=== PATIENT | male | born 1945 | race African-American/Black ===

== ENCOUNTER 2019-09-04 00:35 | Inpatient (IN) | payer MEDICARE, MEDICAID ==
[~2019-09-04] VITALS: Ht 180.3 cm; Wt 77.1 kg
[2019-09-04] MEDS ORDERED: SODIUM CHLORIDE 0.9% 1,000 ML IV ONE (02:28)
[2019-09-04] MEDS ORDERED: MORPHINE SULFATE 4 MG/ML CPJ (NOT FOR IM USE) IV STA (02:28)
[2019-09-04] MEDS ORDERED: ONDANSETRON HCL 4MG/2ML INJ IV STA (02:28)
[2019-09-04 03:29] LABS: CHLORIDE 110 mEq/L (98-107)
[2019-09-04 03:35] LABS: HEMATOCRIT. 36.8 % (42.0-52.0); HEMOGLOBIN. 12.4 g/dL (14.0-18.0); MEAN CORPUSCULAR VOLUME 89.1 fL (80.0-94.0); PLATELET 212 x1000/uL (130-400); RED BLOOD CELL COUNT 4.13 mill/uL (4.7-6.1); RED CELL DISTRIBUTION WIDTH 13.9 % (11.6-14.6)
[2019-09-04 05:07] LABS: PLATELET ESTIMATE NORMAL
[2019-09-04] MEDS ORDERED: CLONIDINE 0.1MG TABLET PO PRN (05:45)
[2019-09-04] MEDS ORDERED: ACETAMINOPHEN 325MG TABLET PO PRN (05:45)
[2019-09-04] MEDS ORDERED: DOCUSATE SODIUM 100MG CAPSULE PO PRN (05:45)
[2019-09-04] MEDS ORDERED: ONDANSETRON HCL 4MG/2ML INJ IV PRN (05:45)
[2019-09-04] MEDS ORDERED: SODIUM BICARBONATE 8.4% 1 MEQ/ML 50ML SYR IV ONE ×4 (06:00)
[2019-09-04 07:13] LABS: CLARITY URINE CLEAR (CLEAR); COLOR URINE YELLOW (YELLOW); KETONES URINE TRACE (NEGATIVE); LEUKOCYTE ESTERASE URINE 1+ (NEGATIVE); NITRITE URINE NEGATIVE (NEGATIVE); OCCULT BLOOD URINE 1+ (NEGATIVE); PROTEIN URINE NEGATIVE (NEGATIVE); SPECIFIC GRAVITY URINE 1.024 (1.005-1.030)
[2019-09-04] MEDS ORDERED: AMLODIPINE 5MG TABLET PO SCH (09:00)
[2019-09-04 09:40] VITALS: BP 175/88
[2019-09-04 10:02] VITALS: BP 146/74
[2019-09-04] MEDS: MORPHINE SULFATE 2 MG/ML CPJ (NOT FOR IM USE) IV PRN ×2 (10:13→21:42)
[2019-09-04 12:00] VITALS: BP 121/67
[2019-09-04] MEDS: DEXT 5%/0.45% NACL 1000ML 1,000 ML IV SCH (12:25)
[2019-09-04 16:00] VITALS: BP 162/73
[2019-09-04 20:00] VITALS: BP 152/60
[2019-09-04] MEDS: AMLODIPINE 5MG TABLET PO SCH (21:30)
[2019-09-05 04:00] VITALS: BP 150/67
[2019-09-05] MEDS: DEXT 5%/0.45% NACL 1000ML 1,000 ML IV SCH ×2 (05:57→10:47)
[2019-09-05 06:28] LABS: CHLORIDE 109 mEq/L (98-107)
[2019-09-05 06:29] LABS: BASOPHILS % 0.2 % (0.0-2.0); EOSINOPHILS % 0.2 % (0.0-5.0); LYMPHOCYTES % 10.2 % (20.0-50.0); MEAN CORPUSCULAR HEMOGLOBIN 30.4 pg (28.0-32.0); MONOCYTES % 7.7 % (2.0-8.0); NEUTROPHILS % 81.7 % (40.0-76.0); PLATELET 172 x1000/uL (130-400); RED BLOOD CELL COUNT 3.93 mill/uL (4.7-6.1); RED CELL DISTRIBUTION WIDTH 13.6 % (11.6-14.6)
[2019-09-05 06:36] LABS: HDL CHOLESTEROL 72 mg/dL (40-59)
[2019-09-05 06:38] LABS: LDL CHOLESTEROL 85 mg/dL (5-100)
[2019-09-05 08:00] VITALS: BP 103/79
[2019-09-05] MEDS: AMLODIPINE 5MG TABLET PO SCH ×2 (09:06→21:35)
[2019-09-05] MEDS: MORPHINE SULFATE 2 MG/ML CPJ (NOT FOR IM USE) IV PRN (09:12)
[2019-09-05 12:00] VITALS: BP 159/78
[2019-09-05 16:00] VITALS: BP_SYST 142; BP_SYST 157; BP_DIAS 82; BP_DIAS 85
[2019-09-05] MEDS ORDERED: VANCOMYCIN HCL 1 GM/VIAL ONE (17:18)
[2019-09-05] MEDS ORDERED: BUPIVACAINE HCL/EPINEPHRINE/PF 0.5%/0.0005 10ML ONE (17:18)
[2019-09-05] MEDS ORDERED: BACITRACIN 50,000 UNITS/VIAL ONE (17:19)
[2019-09-05] MEDS ORDERED: MIDAZOLAM HCL 2 MG/2 ML VIAL ONE (18:02)
[2019-09-05] MEDS ORDERED: FENTANYL CITRATE/PF 50MCG/ML 2ML VIAL ONE (18:02)
[2019-09-05] MEDS ORDERED: PROPOFOL 200MG/20ML VIAL IV ONE (18:02)
[2019-09-05] MEDS ORDERED: LABETALOL 5MG/ML SYR 20 MG/4 ML SYRINGE IV PRN (19:00)
[2019-09-05] MEDS ORDERED: MEPERIDINE HCL/PF 25MG/ML CPJ IV PRN (19:00)
[2019-09-05] MEDS ORDERED: HYDROMORPHONE HCL/PF 2MG/ML CPJ IV PRN (19:00)
[2019-09-05] MEDS ORDERED: ONDANSETRON HCL 4MG/2ML INJ IV PRN (19:00)
[2019-09-05] MEDS ORDERED: ONDANSETRON HCL 4MG/2ML INJ ONE (19:06)
[2019-09-05] MEDS ORDERED: DEXAMETHASONE 4MG/ML 1ML VIAL ONE (19:06)
[2019-09-05] MEDS ORDERED: CEFAZOLIN SODIUM 1000MG/VIAL ONE (19:06)
[2019-09-05] MEDS ORDERED: SODIUM CHLORIDE 0.9% 10ML VIAL ONE (19:07)
[2019-09-05 20:15] VITALS: BP 149/73
[2019-09-05] MEDS ORDERED: CEFAZOLIN SODIUM 1000MG/VIAL IV SCH (22:00)
[2019-09-05] MEDS ORDERED: CEFAZOLIN 1000MG PREMIX 50 ML IV SCH (23:00)
[2019-09-06] VITALS: BP 144/77
[2019-09-06] MEDS: DEXT 5%/0.45% NACL 1000ML 1,000 ML IV SCH
[2019-09-06] MEDS: HYDROCODONE/ACETAMINOPHEN 5/325MG TABLET PO PRN ×3 (00:05→16:51)
[2019-09-06 04:00] VITALS: BP 131/73
[2019-09-06] MEDS: CEFAZOLIN 1000MG PREMIX 50 ML IV SCH ×3 (04:54→16:36)
[2019-09-06 08:00] VITALS: BP 133/77
[2019-09-06] MEDS: AMLODIPINE 5MG TABLET PO SCH ×2 (08:32→22:12)
[2019-09-06] MEDS: DOCUSATE SODIUM 100MG CAPSULE PO SCH (10:19)
[2019-09-06] MEDS: ENOXAPARIN 40MG/0.4ML SYR SUBCUT SCH (10:19)
[2019-09-06] MEDS: MORPHINE SULFATE 2 MG/ML CPJ (NOT FOR IM USE) IV PRN (10:19)
[2019-09-06 12:00] VITALS: BP 152/81
[2019-09-06 16:00] VITALS: BP 153/76
[2019-09-06 20:00] VITALS: BP 133/67
[2019-09-07] VITALS (8 sets, daily range): BP systolic 129–140; BP diastolic 68–84
[2019-09-07 06:54] LABS: CHLORIDE 103 mEq/L (98-107)
[2019-09-07 07:03] LABS: BASOPHILS % 0.3 % (0.0-2.0); EOSINOPHILS % 0.2 % (0.0-5.0); HEMATOCRIT. 29.6 % (42.0-52.0); HEMOGLOBIN. 10.2 g/dL (14.0-18.0); LYMPHOCYTES % 10.1 % (20.0-50.0); MEAN CORPUSCULAR HEMOGLOBIN 30.7 pg (28.0-32.0); MEAN CORPUSCULAR VOLUME 88.8 fL (80.0-94.0); MONOCYTES % 8.6 % (2.0-8.0); NEUTROPHILS % 80.8 % (40.0-76.0); PLATELET 176 x1000/uL (130-400); RED BLOOD CELL COUNT 3.33 mill/uL (4.7-6.1); RED CELL DISTRIBUTION WIDTH 13.4 % (11.6-14.6)
[2019-09-07] MEDS: AMLODIPINE 5MG TABLET PO SCH ×2 (08:15→20:45)
[2019-09-07] MEDS: DOCUSATE SODIUM 100MG CAPSULE PO SCH (08:15)
[2019-09-07] MEDS: ENOXAPARIN 40MG/0.4ML SYR SUBCUT SCH (08:16)
[2019-09-07] MEDS: HYDROCODONE/ACETAMINOPHEN 5/325MG TABLET PO PRN ×2 (08:16→20:44)
[2019-09-07] MEDS ORDERED: NICOTINE 21MG PATCH TD SCH (14:45)
[2019-09-08] MEDS ORDERED: MULT1CAP34 PO (06:26)
== END 2019-09-07 21:00 | DRG 482 ==
LOC: ER 01:07 → 6EST 05:45 → EDBEDREQ 05:51 → EDBEDREQSVC 05:51 → EDBEDREQTM 05:51 → ENRESERV 09:04
PROVIDERS: ADMIT Internal Medicine Nephrology; ATTEND Internal Medicine Nephrology
PROC: 0QS704Z Reposition Left Upper Femur with Internal Fixation Device, Open Approach (ICD-10-PCS; principal; 2019-09-05)
DX: S72.142A Displaced intertrochanteric fracture of left femur, initial encounter for closed fracture (principal); I16.0 Hypertensive urgency; J44.9 Chronic obstructive pulmonary disease, unspecified; I10 Essential (primary) hypertension; F17.210 Nicotine dependence, cigarettes, uncomplicated; W01.0XXA Fall on same level from slipping, tripping and stumbling without subsequent striking against object, initial encounter; Y93.89 Activity, other specified; Y92.89 Other specified places as the place of occurrence of the external cause; Y99.8 Other external cause status
CPT/HCPCS: 36415; 71045; 73501; 73502; 73552; 76000; 80048; 80053; 80061; 81003; 84484; 85025; 86850; 86900; 93005; 93306; 93970; 97110; 97163; 97530; 99285; C1713; J0171; J0690; J1100; J1170; J1650; J2250; J2270; J2405; J2704; J3010; J3370; J3490; J7030

== ENCOUNTER 2019-09-07 21:05 | Inpatient (IN) | payer MEDICARE, MEDICAID ==
[~2019-09-07] VITALS: Ht 180.3 cm; Wt 81.2 kg
[2019-09-07 21:20] VITALS: BP 135/70
[2019-09-07 22:00] VITALS: BP 135/70
[2019-09-07] MEDS ORDERED: DOCUSATE SODIUM 100MG CAPSULE PO PRN (22:15)
[2019-09-07] MEDS ORDERED: ACETAMINOPHEN 325MG TABLET PO PRN (22:15)
[2019-09-07] MEDS ORDERED: CLONIDINE 0.1MG TABLET PO PRN (22:15)
[2019-09-07] MEDS ORDERED: ONDANSETRON HCL 4MG/2ML INJ IV PRN (22:15)
[2019-09-08] MEDS: HYDROCODONE/ACETAMINOPHEN 5/325MG TABLET PO PRN ×4 (05:37→18:10)
[2019-09-08] MEDS ORDERED: MULT1CAP34 PO (06:26)
[2019-09-08 07:07] LABS: BASOPHILS % 0.3 % (0.0-2.0); EOSINOPHILS % 0.4 % (0.0-5.0); HEMATOCRIT. 30.3 % (42.0-52.0); HEMOGLOBIN. 10.5 g/dL (14.0-18.0); LYMPHOCYTES % 10.1 % (20.0-50.0); MEAN CORPUSCULAR HEMOGLOBIN 30.8 pg (28.0-32.0); MEAN CORPUSCULAR VOLUME 89.2 fL (80.0-94.0); MEAN PLATELET VOLUME 8.8 fl (7.4-10.4); MONOCYTES % 7.6 % (2.0-8.0); NEUTROPHILS % 81.6 % (40.0-76.0); PLATELET 198 x1000/uL (130-400); RED BLOOD CELL COUNT 3.39 mill/uL (4.7-6.1); RED CELL DISTRIBUTION WIDTH 13.3 % (11.6-14.6)
[2019-09-08 07:20] LABS: CHLORIDE 104 mEq/L (98-107)
[2019-09-08 08:30] VITALS: BP 116/67
[2019-09-08] MEDS: DOCUSATE SODIUM 100MG CAPSULE PO SCH (09:28)
[2019-09-08] MEDS: AMLODIPINE 5MG TABLET PO SCH ×2 (09:28→20:31)
[2019-09-08] MEDS: ENOXAPARIN 40MG/0.4ML SYR SUBCUT SCH (09:29)
[2019-09-08] MEDS: NICOTINE 21MG PATCH TD SCH (09:29)
[2019-09-08 20:00] VITALS: BP 141/75
[2019-09-08] MEDS: LACTULOSE 20G/30ML UDC PO PRN (20:31)
[2019-09-09] MEDS: HYDROCODONE/ACETAMINOPHEN 5/325MG TABLET PO PRN ×3 (00:04→17:27)
[2019-09-09 08:30] VITALS: BP 122/62
[2019-09-09] MEDS: DOCUSATE SODIUM 100MG CAPSULE PO SCH ×2 (09:01→17:27)
[2019-09-09] MEDS: AMLODIPINE 5MG TABLET PO SCH ×2 (09:01→20:40)
[2019-09-09] MEDS: ENOXAPARIN 40MG/0.4ML SYR SUBCUT SCH (09:02)
[2019-09-09] MEDS: NICOTINE 21MG PATCH TD SCH (09:02)
[2019-09-09 20:00] VITALS: BP 137/77
[2019-09-09] MEDS: LACTULOSE 20G/30ML UDC PO PRN (20:39)
[2019-09-10] MEDS: HYDROCODONE/ACETAMINOPHEN 5/325MG TABLET PO PRN ×2 (06:00→13:46)
[2019-09-10 07:16] LABS: CHLORIDE 105 mEq/L (98-107)
[2019-09-10 07:25] LABS: PHOSPHORUS 2.5 mg/dL (2.5-4.9)
[2019-09-10 07:26] LABS: TOTAL IRON BINDING CAPACITY 301 ug/dL (250-450)
[2019-09-10 07:31] LABS: BASOPHILS % 0.4 % (0.0-2.0); EOSINOPHILS % 1.4 % (0.0-5.0); HEMATOCRIT. 27.9 % (42.0-52.0); HEMOGLOBIN. 9.6 g/dL (14.0-18.0); LYMPHOCYTES % 13.6 % (20.0-50.0); MEAN CORPUSCULAR HEMOGLOBIN 30.5 pg (28.0-32.0); MEAN CORPUSCULAR VOLUME 88.3 fL (80.0-94.0); MEAN PLATELET VOLUME 8.4 fl (7.4-10.4); MONOCYTES % 7.5 % (2.0-8.0); NEUTROPHILS % 77.1 % (40.0-76.0); PLATELET 252 x1000/uL (130-400); RED BLOOD CELL COUNT 3.16 mill/uL (4.7-6.1); RED CELL DISTRIBUTION WIDTH 13.3 % (11.6-14.6)
[2019-09-10 07:36] LABS: FOLIC ACID (FOLATE) SERUM 17.8 ng/mL (>5.38)
[2019-09-10 07:39] LABS: PROSTRATE SPECIFIC AG TOTAL 64.62 ng/mL (0.0-4.0)
[2019-09-10 08:00] VITALS: BP 155/77
[2019-09-10] MEDS: AMLODIPINE 5MG TABLET PO SCH ×2 (08:37→21:25)
[2019-09-10] MEDS: NICOTINE 21MG PATCH TD SCH (08:38)
[2019-09-10] MEDS: ENOXAPARIN 40MG/0.4ML SYR SUBCUT SCH (08:38)
[2019-09-10] MEDS: POLYETHYLENE GLYCOL 3350 (17GM) 1 DOSE PACK PO SCH (11:32)
[2019-09-10] MEDS: DOCUSATE SODIUM 100MG CAPSULE PO SCH ×2 (11:32→18:18)
[2019-09-10] MEDS: TAMSULOSIN HCL 0.4MG SR CAPSULE PO SCH (11:35)
[2019-09-10 13:30] VITALS: BP 126/61
[2019-09-10 20:00] VITALS: BP 136/64
[2019-09-10] MEDS: CARVEDILOL 3.125 MG TABLET PO SCH (21:25)
[2019-09-11] MEDS: HYDROCODONE/ACETAMINOPHEN 5/325MG TABLET PO PRN ×2 (07:31→14:26)
[2019-09-11 08:08] VITALS: BP 122/66
[2019-09-11] MEDS: POLYETHYLENE GLYCOL 3350 (17GM) 1 DOSE PACK PO SCH (08:46)
[2019-09-11] MEDS: NICOTINE 21MG PATCH TD SCH (08:46)
[2019-09-11] MEDS: DOCUSATE SODIUM 100MG CAPSULE PO SCH ×2 (08:46→17:04)
[2019-09-11] MEDS: ENOXAPARIN 40MG/0.4ML SYR SUBCUT SCH (08:47)
[2019-09-11] MEDS: TAMSULOSIN HCL 0.4MG SR CAPSULE PO SCH (08:47)
[2019-09-11] MEDS: CARVEDILOL 3.125 MG TABLET PO SCH ×2 (08:47→21:27)
[2019-09-11] MEDS: AMLODIPINE 5MG TABLET PO SCH ×2 (08:47→21:27)
[2019-09-11] MEDS ORDERED: NA PHOS,M-B/NA PHOS,DI-BA ENEMA 118ML PR NR (16:00)
[2019-09-11] MEDS ORDERED: BISACODYL 10MG SUPP PR SCH (16:00)
[2019-09-11] MEDS: LACTULOSE 20G/30ML UDC PO SCH ×2 (17:04→21:27)
[2019-09-11 20:00] VITALS: BP 134/63
[2019-09-11] MEDS: IRON SUCROSE COMPLEX 100 MG in SODIUM CHLORIDE 0.9% 100 ML IV SCH (21:23)
[2019-09-12] MEDS: HYDROCODONE/ACETAMINOPHEN 5/325MG TABLET PO PRN (06:31)
[2019-09-12 08:00] VITALS: BP 127/76
[2019-09-12] MEDS: MORPHINE SULFATE 2 MG/ML CPJ (NOT FOR IM USE) IV PRN ×2 (08:30→12:51)
[2019-09-12] MEDS: TAMSULOSIN HCL 0.4MG SR CAPSULE PO SCH (08:43)
[2019-09-12] MEDS: POLYETHYLENE GLYCOL 3350 (17GM) 1 DOSE PACK PO SCH (08:43)
[2019-09-12] MEDS: NICOTINE 21MG PATCH TD SCH (08:43)
[2019-09-12] MEDS: DOCUSATE SODIUM 100MG CAPSULE PO SCH ×2 (08:43→16:44)
[2019-09-12] MEDS: AMLODIPINE 5MG TABLET PO SCH ×2 (08:44→20:58)
[2019-09-12] MEDS: ENOXAPARIN 40MG/0.4ML SYR SUBCUT SCH (08:44)
[2019-09-12] MEDS: CARVEDILOL 3.125 MG TABLET PO SCH ×2 (08:44→20:58)
[2019-09-12] MEDS: LACTULOSE 20G/30ML UDC PO SCH (08:44)
[2019-09-12] MEDS ORDERED: NA PHOS,M-B/NA PHOS,DI-BA ENEMA 118ML PR NR (08:45)
[2019-09-12] MEDS ORDERED: NA PHOS,M-B/NA PHOS,DI-BA ENEMA 118ML PR PRN (09:00)
[2019-09-12] MEDS: OXYCODONE HCL/ACETAMINOPHEN 5/325MG TABLET PO PRN (12:58)
[2019-09-12] MEDS ORDERED: SORBITOL 70% SOLN 30ML PO NR (15:15)
[2019-09-12 20:00] VITALS: BP 132/81
[2019-09-12] MEDS: IRON SUCROSE COMPLEX 100 MG in SODIUM CHLORIDE 0.9% 100 ML IV SCH (20:58)
[2019-09-13] MEDS: OXYCODONE HCL/ACETAMINOPHEN 5/325MG TABLET PO PRN ×2 (06:29→12:35)
[2019-09-13 08:00] VITALS: BP 165/77
[2019-09-13] MEDS: NICOTINE 21MG PATCH TD SCH (09:23)
[2019-09-13] MEDS: TAMSULOSIN HCL 0.4MG SR CAPSULE PO SCH (09:24)
[2019-09-13] MEDS: CARVEDILOL 3.125 MG TABLET PO SCH ×2 (09:24→21:23)
[2019-09-13] MEDS: POLYETHYLENE GLYCOL 3350 (17GM) 1 DOSE PACK PO SCH (09:24)
[2019-09-13] MEDS: ENOXAPARIN 40MG/0.4ML SYR SUBCUT SCH (09:24)
[2019-09-13] MEDS: DOCUSATE SODIUM 100MG CAPSULE PO SCH ×2 (09:24→16:40)
[2019-09-13] MEDS: AMLODIPINE 5MG TABLET PO SCH ×2 (09:24→21:23)
[2019-09-13 15:09] LABS: 25-HYDROXY VITAMIN D3 27 ng/mL (.)
[2019-09-13 20:00] VITALS: BP 120/70
[2019-09-13] MEDS: IRON SUCROSE COMPLEX 100 MG in SODIUM CHLORIDE 0.9% 100 ML IV SCH (21:24)
[2019-09-14] MEDS: OXYCODONE HCL/ACETAMINOPHEN 5/325MG TABLET PO PRN ×2 (06:24→13:31)
[2019-09-14 07:28] LABS: BASOPHILS % 0.4 % (0.0-2.0); HEMATOCRIT. 29.7 % (42.0-52.0); HEMOGLOBIN. 10.2 g/dL (14.0-18.0); LYMPHOCYTES % 12.8 % (20.0-50.0); MEAN CORPUSCULAR HEMOGLOBIN 30.9 pg (28.0-32.0); MEAN CORPUSCULAR VOLUME 89.6 fL (80.0-94.0); MEAN PLATELET VOLUME 7.7 fl (7.4-10.4); MONOCYTES % 7.5 % (2.0-8.0); NEUTROPHILS % 78.3 % (40.0-76.0); PLATELET 358 x1000/uL (130-400); RED BLOOD CELL COUNT 3.31 mill/uL (4.7-6.1); RED CELL DISTRIBUTION WIDTH 13.5 % (11.6-14.6)
[2019-09-14 07:34] LABS: CHLORIDE 107 mEq/L (98-107)
[2019-09-14 08:25] VITALS: BP 111/67
[2019-09-14] MEDS: NICOTINE 21MG PATCH TD SCH (08:51)
[2019-09-14] MEDS: DOCUSATE SODIUM 100MG CAPSULE PO SCH ×2 (08:51→17:45)
[2019-09-14] MEDS: ENOXAPARIN 40MG/0.4ML SYR SUBCUT SCH (08:51)
[2019-09-14] MEDS: AMLODIPINE 5MG TABLET PO SCH ×2 (08:52→22:17)
[2019-09-14] MEDS: TAMSULOSIN HCL 0.4MG SR CAPSULE PO SCH (08:52)
[2019-09-14] MEDS: CARVEDILOL 3.125 MG TABLET PO SCH ×2 (08:53→22:17)
[2019-09-14] MEDS: POLYETHYLENE GLYCOL 3350 (17GM) 1 DOSE PACK PO SCH (08:53)
[2019-09-14] MEDS: ERGOCALCIFEROL 50000UNITS CAPSULE PO SCH (17:46)
[2019-09-14 20:00] VITALS: BP 131/66
[2019-09-14] MEDS: IRON SUCROSE COMPLEX 100 MG in SODIUM CHLORIDE 0.9% 100 ML IV SCH (22:17)
[2019-09-15 08:01] VITALS: BP 112/62
[2019-09-15] MEDS: NICOTINE 21MG PATCH TD SCH (08:42)
[2019-09-15] MEDS: POLYETHYLENE GLYCOL 3350 (17GM) 1 DOSE PACK PO SCH (08:42)
[2019-09-15] MEDS: DOCUSATE SODIUM 100MG CAPSULE PO SCH ×2 (08:43→17:33)
[2019-09-15] MEDS: AMLODIPINE 5MG TABLET PO SCH ×2 (08:43→21:27)
[2019-09-15] MEDS: ENOXAPARIN 40MG/0.4ML SYR SUBCUT SCH (08:43)
[2019-09-15] MEDS: TAMSULOSIN HCL 0.4MG SR CAPSULE PO SCH (08:43)
[2019-09-15] MEDS: CARVEDILOL 3.125 MG TABLET PO SCH ×2 (08:43→21:27)
[2019-09-15] MEDS: OXYCODONE HCL/ACETAMINOPHEN 5/325MG TABLET PO PRN (14:06)
[2019-09-15 20:00] VITALS: BP 118/61
[2019-09-15] MEDS: IRON SUCROSE COMPLEX 100 MG in SODIUM CHLORIDE 0.9% 100 ML IV SCH (21:27)
[2019-09-16 08:00] VITALS: BP 131/68
[2019-09-16] MEDS: CARVEDILOL 3.125 MG TABLET PO SCH ×2 (09:14→22:18)
[2019-09-16] MEDS: DOCUSATE SODIUM 100MG CAPSULE PO SCH ×2 (09:14→16:22)
[2019-09-16] MEDS: AMLODIPINE 5MG TABLET PO SCH ×2 (09:14→21:00)
[2019-09-16] MEDS: TAMSULOSIN HCL 0.4MG SR CAPSULE PO SCH (09:14)
[2019-09-16] MEDS: NICOTINE 21MG PATCH TD SCH (09:14)
[2019-09-16] MEDS: POLYETHYLENE GLYCOL 3350 (17GM) 1 DOSE PACK PO SCH (09:14)
[2019-09-16] MEDS: ENOXAPARIN 40MG/0.4ML SYR SUBCUT SCH (09:15)
[2019-09-16] MEDS ORDERED: LACTULOSE 20G/30ML UDC PO PRN (13:00)
[2019-09-16 20:00] VITALS: BP 126/70
[2019-09-17 07:40] VITALS: BP 125/68
[2019-09-17] MEDS: OXYCODONE HCL/ACETAMINOPHEN 5/325MG TABLET PO PRN ×2 (07:46→21:13)
[2019-09-17 08:09] LABS: BASOPHILS % 0.4 % (0.0-2.0); EOSINOPHILS % 1.3 % (0.0-5.0); HEMATOCRIT. 30.1 % (42.0-52.0); HEMOGLOBIN. 10.2 g/dL (14.0-18.0); LYMPHOCYTES % 13.1 % (20.0-50.0); MEAN CORPUSCULAR HEMOGLOBIN 30.8 pg (28.0-32.0); MEAN CORPUSCULAR VOLUME 90.5 fL (80.0-94.0); MEAN PLATELET VOLUME 7.7 fl (7.4-10.4); MONOCYTES % 6.4 % (2.0-8.0); NEUTROPHILS % 78.8 % (40.0-76.0); PLATELET 391 x1000/uL (130-400); RED BLOOD CELL COUNT 3.32 mill/uL (4.7-6.1); RED CELL DISTRIBUTION WIDTH 14.1 % (11.6-14.6)
[2019-09-17 08:28] LABS: CHLORIDE 107 mEq/L (98-107)
[2019-09-17 09:14] VITALS: BP 133/75
[2019-09-17] MEDS: DOCUSATE SODIUM 100MG CAPSULE PO SCH ×2 (09:15→17:00)
[2019-09-17] MEDS: AMLODIPINE 5MG TABLET PO SCH ×2 (09:16→21:12)
[2019-09-17] MEDS: CARVEDILOL 3.125 MG TABLET PO SCH ×2 (09:16→21:12)
[2019-09-17] MEDS: TAMSULOSIN HCL 0.4MG SR CAPSULE PO SCH (09:16)
[2019-09-17] MEDS: POLYETHYLENE GLYCOL 3350 (17GM) 1 DOSE PACK PO SCH (09:16)
[2019-09-17] MEDS: NICOTINE 21MG PATCH TD SCH (09:17)
[2019-09-17] MEDS: ENOXAPARIN 40MG/0.4ML SYR SUBCUT SCH (09:35)
[2019-09-17 19:09] LABS: 25-HYDROXY VITAMIN D3 28 ng/mL (.)
[2019-09-17 20:00] VITALS: BP 105/52
[2019-09-18] MEDS: OXYCODONE HCL/ACETAMINOPHEN 5/325MG TABLET PO PRN ×2 (06:30→21:34)
[2019-09-18 07:56] VITALS: BP 119/65
[2019-09-18] MEDS: ENOXAPARIN 40MG/0.4ML SYR SUBCUT SCH (08:33)
[2019-09-18] MEDS: CARVEDILOL 3.125 MG TABLET PO SCH ×2 (08:33→21:34)
[2019-09-18] MEDS: TAMSULOSIN HCL 0.4MG SR CAPSULE PO SCH (08:34)
[2019-09-18] MEDS: AMLODIPINE 5MG TABLET PO SCH ×2 (08:34→21:33)
[2019-09-18] MEDS: POLYETHYLENE GLYCOL 3350 (17GM) 1 DOSE PACK PO SCH (08:34)
[2019-09-18] MEDS: DOCUSATE SODIUM 100MG CAPSULE PO SCH ×2 (08:35→16:28)
[2019-09-18] MEDS: NICOTINE 21MG PATCH TD SCH (09:07)
[2019-09-18] MEDS: LACTULOSE 20G/30ML UDC PO SCH ×3 (16:28→21:00)
[2019-09-18 20:00] VITALS: BP 118/68
[2019-09-19] MEDS: OXYCODONE HCL/ACETAMINOPHEN 5/325MG TABLET PO PRN ×2 (06:32→23:32)
[2019-09-19 08:26] VITALS: BP 103/56
[2019-09-19] MEDS: AMLODIPINE 5MG TABLET PO SCH ×2 (09:00→21:48)
[2019-09-19] MEDS: CARVEDILOL 3.125 MG TABLET PO SCH ×2 (09:00→21:48)
[2019-09-19] MEDS: POLYETHYLENE GLYCOL 3350 (17GM) 1 DOSE PACK PO SCH (09:00)
[2019-09-19] MEDS: DOCUSATE SODIUM 100MG CAPSULE PO SCH ×2 (09:11→17:28)
[2019-09-19] MEDS: TAMSULOSIN HCL 0.4MG SR CAPSULE PO SCH (09:12)
[2019-09-19] MEDS: ENOXAPARIN 40MG/0.4ML SYR SUBCUT SCH (09:14)
[2019-09-19] MEDS: NICOTINE 21MG PATCH TD SCH (09:16)
[2019-09-19 20:00] VITALS: BP 126/74
[2019-09-20] MEDS: OXYCODONE HCL/ACETAMINOPHEN 5/325MG TABLET PO PRN (06:34)
[2019-09-20 06:48] LABS: BASOPHILS % 0.3 % (0.0-2.0); EOSINOPHILS % 1.6 % (0.0-5.0); HEMATOCRIT. 30.5 % (42.0-52.0); HEMOGLOBIN. 10.2 g/dL (14.0-18.0); LYMPHOCYTES % 19.8 % (20.0-50.0); MEAN CORPUSCULAR HEMOGLOBIN 30.3 pg (28.0-32.0); MEAN CORPUSCULAR VOLUME 90.9 fL (80.0-94.0); MEAN PLATELET VOLUME 7.7 fl (7.4-10.4); MONOCYTES % 8.2 % (2.0-8.0); NEUTROPHILS % 70.1 % (40.0-76.0); PLATELET 344 x1000/uL (130-400); RED BLOOD CELL COUNT 3.35 mill/uL (4.7-6.1); RED CELL DISTRIBUTION WIDTH 14.4 % (11.6-14.6)
[2019-09-20 07:12] LABS: CHLORIDE 106 mEq/L (98-107)
[2019-09-20 07:20] LABS: PHOSPHORUS 2.7 mg/dL (2.5-4.9)
[2019-09-20 08:04] VITALS: BP 130/66
[2019-09-20] MEDS: AMLODIPINE 5MG TABLET PO SCH ×2 (08:58→21:05)
[2019-09-20] MEDS: TAMSULOSIN HCL 0.4MG SR CAPSULE PO SCH (08:58)
[2019-09-20] MEDS: CARVEDILOL 3.125 MG TABLET PO SCH ×2 (08:58→21:06)
[2019-09-20] MEDS: ENOXAPARIN 40MG/0.4ML SYR SUBCUT SCH (08:59)
[2019-09-20] MEDS: DOCUSATE SODIUM 100MG CAPSULE PO SCH ×2 (08:59→17:43)
[2019-09-20] MEDS: POLYETHYLENE GLYCOL 3350 (17GM) 1 DOSE PACK PO SCH (08:59)
[2019-09-20] MEDS: NICOTINE 21MG PATCH TD SCH (08:59)
[2019-09-20 20:00] VITALS: BP 113/64
[2019-09-21] MEDS: OXYCODONE HCL/ACETAMINOPHEN 5/325MG TABLET PO PRN (01:40)
[2019-09-21 08:00] VITALS: BP 127/69
[2019-09-21] MEDS: DOCUSATE SODIUM 100MG CAPSULE PO SCH (08:36)
[2019-09-21] MEDS: POLYETHYLENE GLYCOL 3350 (17GM) 1 DOSE PACK PO SCH (08:36)
[2019-09-21] MEDS: CARVEDILOL 3.125 MG TABLET PO SCH (08:36)
[2019-09-21] MEDS: ERGOCALCIFEROL 50000UNITS CAPSULE PO SCH (08:36)
[2019-09-21] MEDS: AMLODIPINE 5MG TABLET PO SCH (08:36)
[2019-09-21] MEDS: TAMSULOSIN HCL 0.4MG SR CAPSULE PO SCH (08:36)
[2019-09-21] MEDS: ENOXAPARIN 40MG/0.4ML SYR SUBCUT SCH (08:38)
[2019-09-21] MEDS: NICOTINE 21MG PATCH TD SCH (08:38)
[2019-09-21 11:00] VITALS: BP 127/69
== END 2019-09-21 14:00 | disposition home health service (06) | DRG 535 ==
PROVIDERS: ADMIT Physical Medicine & Rehabilitation Spinal Cord Injury Medicine; ATTEND Internal Medicine Nephrology
DX: S72.002A Fracture of unspecified part of neck of left femur, initial encounter for closed fracture (principal); E43 Unspecified severe protein-calorie malnutrition; I10 Essential (primary) hypertension; J44.9 Chronic obstructive pulmonary disease, unspecified; D64.9 Anemia, unspecified; Z68.23 Body mass index [BMI] 23.0-23.9, adult; R26.9 Unspecified abnormalities of gait and mobility; R53.81 Other malaise; I27.20 Pulmonary hypertension, unspecified; F17.200 Nicotine dependence, unspecified, uncomplicated; W18.39XA Other fall on same level, initial encounter; Y93.89 Activity, other specified; Y92.89 Other specified places as the place of occurrence of the external cause; Y99.8 Other external cause status
CPT/HCPCS: 36415; 73502; 74018; 80048; 80053; 82306; 82607; 82728; 82746; 83540; 83550; 83735; 83970; 84100; 84134; 84153; 84443; 85025; 92610; 93970; 97110; 97116; 97163; 97166; 97530; 97535; J1650; J2270; J7050; G0103

== ENCOUNTER 2021-08-17 09:21 | Emergency (ER) | payer MEDICARE, MEDICAID ==
[~2021-08-17] VITALS: Ht 170.2 cm; Wt 83.0 kg
[~2021-08-17 09:21] MED LIST: MULT1CAP34 PO
[2021-08-17] MEDS ORDERED: TAMSULOSIN HCL 0.4MG SR CAPSULE PO ONE (10:30)
[2021-08-17] MEDS ORDERED: LEVOFLOXACIN 500MG TABLET PO ONE (10:30)
[2021-08-17] MEDS ORDERED: MORPHINE SULFATE 4 MG/ML CPJ (NOT FOR IM USE) IV ONE (10:45)
[2021-08-17] MEDS ORDERED: SODIUM CHLORIDE 0.9% 500 ML IV ONE (10:45)
[2021-08-17] MEDS ORDERED: FUROSEMIDE 20MG/2ML VIAL IVP ONE (10:45)
[2021-08-17 10:46] LABS: CLARITY URINE TURBID (CLEAR); COLOR URINE RED (YELLOW); KETONES URINE NEGATIVE (NEGATIVE); LEUKOCYTE ESTERASE URINE 3+ (NEGATIVE); NITRITE URINE NEGATIVE (NEGATIVE); OCCULT BLOOD URINE 3+ (NEGATIVE); PH URINE 8.5 (4.5-8.0); PROTEIN URINE 3+ (NEGATIVE); SPECIFIC GRAVITY URINE 1.013 (1.005-1.030); UROBILINOGEN URINE 0.2 E.U./dL (0.2-1.0)
[2021-08-17] MEDS ORDERED: LIDOCAINE HCL 1% 20ML VIAL (Pyxis) INJ INFIL ONE (11:30)
[2021-08-17] MEDS ORDERED: LIDOCAINE HCL 2% JELLY 5ML MM ONE (12:00)
[2021-08-17] MEDS ORDERED: CLONIDINE 0.2MG TABLET PO ONE (13:15)
[2021-08-17] MEDS ORDERED: TAMS-11 MT (14:38)
[2021-08-17] MEDS ORDERED: LEVO250T58 MT (14:38)
[2021-08-17] MEDS ORDERED: AMLO5TAB4 PO (14:38)
[2021-08-17 15:07] VITALS: BP 147/75
== END 2021-08-17 16:04 | disposition home or self-care (01) ==
LOC: ER 09:21
DX: N40.1 Benign prostatic hyperplasia with lower urinary tract symptoms (principal); R33.8 Other retention of urine; N39.0 Urinary tract infection, site not specified; R31.0 Gross hematuria; R03.0 Elevated blood-pressure reading, without diagnosis of hypertension
CPT/HCPCS: 81003; 87086; 96361; 96374; 96375; 99285; J1940; J2270; J3490; J7040

== ENCOUNTER 2021-09-05 10:21 | Emergency (ER) | payer MEDICARE, MEDICAID ==
[~2021-09-05] VITALS: Ht 175.3 cm; Wt 78.0 kg
[~2021-09-05 10:21] MED LIST changes: +AMLO5TAB4 PO; +LEVO250T58 MT; +TAMS-11 MT
[2021-09-05 10:30] VITALS: BP 156/88
[2021-09-05 11:52] LABS: BASOPHILS % 0.5 % (0.0-2.0); EOSINOPHILS % 0.6 % (0.0-5.0); HEMATOCRIT. 36.1 % (42.0-52.0); HEMOGLOBIN. 12.4 g/dL (14.0-18.0); MEAN CORPUSCULAR HEMOGLOBIN 30.3 pg (28.0-32.0); MEAN CORPUSCULAR VOLUME 88.3 fL (80.0-94.0); MEAN PLATELET VOLUME 8.2 fl (7.4-10.4); MONOCYTES % 3.4 % (2.0-8.0); NEUTROPHILS % 86.5 % (40.0-76.0); PLATELET 245 x1000/uL (130-400); RED BLOOD CELL COUNT 4.09 mill/uL (4.7-6.1); RED CELL DISTRIBUTION WIDTH 13.7 % (11.6-14.6)
[2021-09-05 11:54] LABS: CHLORIDE 110 mEq/L (98-107)
[2021-09-05 13:18] LABS: CLARITY URINE CLOUDY (CLEAR); COLOR URINE YELLOW (YELLOW); KETONES URINE NEGATIVE (NEGATIVE); LEUKOCYTE ESTERASE URINE 1+ (NEGATIVE); NITRITE URINE NEGATIVE (NEGATIVE); OCCULT BLOOD URINE 3+ (NEGATIVE); PROTEIN URINE 1+ (NEGATIVE); SPECIFIC GRAVITY URINE 1.012 (1.005-1.030); UROBILINOGEN URINE 0.2 E.U./dL (0.2-1.0)
== END 2021-09-05 14:31 | disposition home or self-care (01) ==
LOC: ER 10:58
DX: Z43.6 Encounter for attention to other artificial openings of urinary tract (principal); R33.9 Retention of urine, unspecified; R10.30 Lower abdominal pain, unspecified
CPT/HCPCS: 36415; 51702; 80053; 81003; 85025; 99284

== ENCOUNTER 2021-12-05 15:19 | Inpatient (IN) | payer MEDICARE, MEDICAID ==
[~2021-12-05] VITALS: Ht 182.9 cm; Wt 82.2 kg
[~2021-12-05 15:19] MED LIST changes: +LEVO250T43 MT; -LEVO250T58 MT
[2021-12-05] MEDS ORDERED: CEFTRIAXONE 1 G PREMIX 50 ML IV ONE (19:15)
[2021-12-05] MEDS ORDERED: ONDANSETRON HCL 4MG/2ML INJ IV PRN (19:30)
[2021-12-05] MEDS ORDERED: CLONIDINE 0.1MG TABLET PO PRN (19:30)
[2021-12-05] MEDS: SODIUM CHLORIDE 0.45% 1,000 ML IV SCH (19:41)
[2021-12-05 19:54] LABS: BASOPHILS % 0.2 % (0.0-2.0); EOSINOPHILS % 0.1 % (0.0-5.0); HEMATOCRIT. 31.9 % (42.0-52.0); HEMOGLOBIN. 10.5 g/dL (14.0-18.0); LYMPHOCYTES % 7.5 % (20.0-50.0); MEAN CORPUSCULAR HEMOGLOBIN 28.6 pg (28.0-32.0); MEAN CORPUSCULAR VOLUME 86.9 fL (80.0-94.0); MEAN PLATELET VOLUME 9.3 fl (7.4-10.4); MONOCYTES % 6.7 % (2.0-8.0); NEUTROPHILS % 85.5 % (40.0-76.0); PLATELET 221 x1000/uL (130-400); RED BLOOD CELL COUNT 3.67 mill/uL (4.7-6.1); RED CELL DISTRIBUTION WIDTH 14.1 % (11.6-14.6)
[2021-12-05 19:57] LABS: CHLORIDE 105 mEq/L (98-107)
[2021-12-05 22:48] VITALS: BP 158/81
[2021-12-05 22:49] VITALS: BP 158/81
[2021-12-05] MEDS ORDERED: POTASSIUM CHLORIDE INJ 40 MEQ in DEXT 5% WATER 250 ML IV ONE (23:00)
[2021-12-05] MEDS ORDERED: PNEUMOCOCCAL 23-VAL P-SAC VAC 0.5 ML IM ONE (23:45)
[2021-12-06] MEDS: KCL 20MEQ/100ML X 2 FOR TOTAL KCL 40MEQ/200ML IV SCH ×2 (00:24→05:24)
[2021-12-06 03:48] LABS: CLARITY URINE TURBID (CLEAR); COLOR URINE ORANGE (YELLOW); KETONES URINE NEGATIVE (NEGATIVE); LEUKOCYTE ESTERASE URINE 3+ (NEGATIVE); NITRITE URINE POSITIVE (NEGATIVE); OCCULT BLOOD URINE 3+ (NEGATIVE); PROTEIN URINE 3+ (NEGATIVE); SPECIFIC GRAVITY URINE 1.013 (1.005-1.030)
[2021-12-06 04:00] VITALS: BP 121/65
[2021-12-06 05:22] LABS: BASOPHILS % 0.2 % (0.0-2.0); EOSINOPHILS % 0.2 % (0.0-5.0); HEMATOCRIT. 28.8 % (42.0-52.0); HEMOGLOBIN. 9.8 g/dL (14.0-18.0); LYMPHOCYTES % 10.9 % (20.0-50.0); MEAN CORPUSCULAR HEMOGLOBIN 28.9 pg (28.0-32.0); MEAN PLATELET VOLUME 9.7 fl (7.4-10.4); MONOCYTES % 8.4 % (2.0-8.0); NEUTROPHILS % 80.3 % (40.0-76.0); PLATELET 195 x1000/uL (130-400); RED BLOOD CELL COUNT 3.39 mill/uL (4.7-6.1); RED CELL DISTRIBUTION WIDTH 13.9 % (11.6-14.6)
[2021-12-06 05:30] LABS: CHLORIDE 105 mEq/L (98-107)
[2021-12-06 08:00] VITALS: BP 124/64
[2021-12-06] MEDS: AMLODIPINE 5MG TABLET PO SCH (10:53)
[2021-12-06] MEDS: FINASTERIDE 5MG TABLET PO SCH (10:53)
[2021-12-06] MEDS: LEVOFLOXACIN 500MG TABLET PO SCH (10:53)
[2021-12-06] MEDS: TAMSULOSIN HCL 0.4MG SR CAPSULE PO SCH (10:54)
[2021-12-06 12:00] VITALS: BP 111/53
[2021-12-06] MEDS ORDERED: POTASSIUM CHLORIDE 20MEQ TABLET SR PO NR ×2 (14:49→18:00)
[2021-12-06 16:00] VITALS: BP 131/77
[2021-12-06] MEDS: ACETAMINOPHEN 325MG TABLET PO PRN (16:08)
[2021-12-06] MEDS: CEFTRIAXONE 1,000 MG in DEXTROSE 5% WATER 50 ML IV SCH (19:57)
[2021-12-06 20:00] VITALS: BP 104/52
[2021-12-07] VITALS (7 sets, daily range): BP systolic 114–134; BP diastolic 53–73
[2021-12-07] MEDS: ACETAMINOPHEN 325MG TABLET PO PRN (04:11)
[2021-12-07] MEDS: SODIUM CHLORIDE 0.45% 1,000 ML IV SCH ×2 (04:11→22:07)
[2021-12-07] MEDS ORDERED: DOCUSATE SODIUM 250MG CAPSULE PO PRN (08:15)
[2021-12-07 08:18] LABS: CHLORIDE 111 mEq/L (98-107)
[2021-12-07] MEDS ORDERED: POTASSIUM CHLORIDE 20MEQ TABLET SR PO SCH (09:00)
[2021-12-07] MEDS: FINASTERIDE 5MG TABLET PO SCH (09:22)
[2021-12-07] MEDS: TAMSULOSIN HCL 0.4MG SR CAPSULE PO SCH (09:22)
[2021-12-07] MEDS: AMLODIPINE 5MG TABLET PO SCH (09:22)
[2021-12-07 09:39] LABS: CHLORIDE 110 mEq/L (98-107)
[2021-12-07] MEDS: LEVOFLOXACIN 500MG TABLET PO SCH (12:33)
[2021-12-07] MEDS: CEFTRIAXONE 1,000 MG in DEXTROSE 5% WATER 50 ML IV SCH (22:06)
[2021-12-08] VITALS: BP 120/70
[2021-12-08 04:00] VITALS: BP 122/70
[2021-12-08 07:11] LABS: BASOPHILS % 0.4 % (0.0-2.0); EOSINOPHILS % 2.1 % (0.0-5.0); HEMATOCRIT. 30.3 % (42.0-52.0); HEMOGLOBIN. 10.1 g/dL (14.0-18.0); LYMPHOCYTES % 13.1 % (20.0-50.0); MEAN CORPUSCULAR HEMOGLOBIN 28.6 pg (28.0-32.0); MEAN CORPUSCULAR VOLUME 85.6 fL (80.0-94.0); MEAN PLATELET VOLUME 9.8 fl (7.4-10.4); MONOCYTES % 5.8 % (2.0-8.0); NEUTROPHILS % 78.6 % (40.0-76.0); PLATELET 232 x1000/uL (130-400); RED BLOOD CELL COUNT 3.54 mill/uL (4.7-6.1); RED CELL DISTRIBUTION WIDTH 13.7 % (11.6-14.6)
[2021-12-08 07:30] LABS: CHLORIDE 111 mEq/L (98-107)
[2021-12-08 07:40] LABS: PHOSPHORUS 2.6 mg/dL (2.5-4.9)
[2021-12-08 08:00] VITALS: BP 139/69
[2021-12-08] MEDS ORDERED: POTASSIUM CHLORIDE 20MEQ TABLET SR PO SCH (09:00)
[2021-12-08] MEDS: TAMSULOSIN HCL 0.4MG SR CAPSULE PO SCH (09:57)
[2021-12-08] MEDS: AMLODIPINE 5MG TABLET PO SCH (09:57)
[2021-12-08] MEDS: LEVOFLOXACIN 500MG TABLET PO SCH (09:57)
[2021-12-08] MEDS: FINASTERIDE 5MG TABLET PO SCH (09:58)
[2021-12-08 12:00] VITALS: BP 130/67
[2021-12-08 13:57] VITALS: BP 130/67
== END 2021-12-08 15:00 | disposition home or self-care (01) | DRG 73 ==
LOC: ER 15:19 → 6WST 19:28 → ENRESERV 20:50
PROVIDERS: ADMIT Internal Medicine Nephrology; ATTEND Internal Medicine Nephrology
PROC: 0T2BX0Z Change Drainage Device in Bladder, External Approach (ICD-10-PCS; 2021-12-06)
PROC: 4A10X4Z Monitoring of Central Nervous Electrical Activity, External Approach (ICD-10-PCS; principal; 2021-12-08)
DX: G90.8 Other disorders of autonomic nervous system (principal); E43 Unspecified severe protein-calorie malnutrition; N39.0 Urinary tract infection, site not specified; T83.091A Other mechanical complication of indwelling urethral catheter, initial encounter; D64.9 Anemia, unspecified; E87.6 Hypokalemia; J44.9 Chronic obstructive pulmonary disease, unspecified; I10 Essential (primary) hypertension; S00.03XA Contusion of scalp, initial encounter; N40.0 Benign prostatic hyperplasia without lower urinary tract symptoms; R29.6 Repeated falls; Y73.8 Miscellaneous gastroenterology and urology devices associated with adverse incidents, not elsewhere classified; M25.552 Pain in left hip; R07.89 Other chest pain; M19.90 Unspecified osteoarthritis, unspecified site; S00.11XA Contusion of right eyelid and periocular area, initial encounter; Z96.649 Presence of unspecified artificial hip joint; W18.39XA Other fall on same level, initial encounter; Y93.89 Activity, other specified; Y92.89 Other specified places as the place of occurrence of the external cause; Y99.8 Other external cause status; Z79.899 Other long term (current) drug therapy; Z79.2 Long term (current) use of antibiotics; Z68.24 Body mass index [BMI] 24.0-24.9, adult
CPT/HCPCS: 36415; 70486; 71101; 73502; 80048; 80053; 81003; 82570; 83735; 83930; 83935; 84100; 84133; 84156; 84443; 85025; 87077; 90732; 93306; 93880; 93970; 95816; 97162; 97165; 99285; J0696; J3480; J7060

== ENCOUNTER 2022-05-01 09:43 | Inpatient (IN) | payer MEDICARE, MEDICAID ==
[2022-05-01] VITALS (28 sets, daily range): BP systolic 80–121; BP diastolic 52–79
[~2022-05-01] VITALS: Ht 182.9 cm; Wt 73.9 kg
[~2022-05-01 09:43] MED LIST changes: -LEVO250T43 MT; +LEVO250T74 MT
[2022-05-01] MEDS ORDERED: SODIUM CHLORIDE 0.9% 1000ML BAG (SEPSIS BOLUS) IV ONE (10:00)
[2022-05-01] MEDS ORDERED: PIPERACILLIN/TAZ 3.375G PREMIX 50 ML IV ONE (10:00)
[2022-05-01] MEDS ORDERED: VANCOMYCIN 1G PREMIX 200 ML IV ONE (10:00)
[2022-05-01] MEDS ORDERED: ACETAMINOPHEN 650MG SUPP PR ONE (10:00)
[2022-05-01 10:16] LABS: HEMATOCRIT. 30.1 % (42.0-52.0); HEMOGLOBIN. 9.8 g/dL (14.0-18.0); MEAN CORPUSCULAR HEMOGLOBIN 27.5 pg (28.0-32.0); MEAN CORPUSCULAR VOLUME 84.7 fL (80.0-94.0); MEAN PLATELET VOLUME 9.6 fl (7.4-10.4); PLATELET 238 x1000/uL (130-400); RED BLOOD CELL COUNT 3.55 mill/uL (4.7-6.1); RED CELL DISTRIBUTION WIDTH 14.2 % (11.6-14.6)
[2022-05-01 10:27] LABS: INR 1.3; PROTHROMBIN TIME 13.7 sec (9.6-11.0)
[2022-05-01 10:28] LABS: CHLORIDE 94 mEq/L (98-107)
[2022-05-01] MEDS ORDERED: ACETAMINOPHEN 650MG SUPP PR NR (10:45)
[2022-05-01 10:48] LABS: PLATELET ESTIMATE NORMAL
[2022-05-01] MEDS ORDERED: NOREPINEPHRINE 8MG/250ML PMX 250 ML IV STA (12:18)
[2022-05-01] MEDS ORDERED: SODIUM CHLORIDE 0.9% 1,000 ML IV ONE (12:30)
[2022-05-01 12:34] LABS: CLARITY URINE CLOUDY (CLEAR); COLOR URINE YELLOW (YELLOW); KETONES URINE NEGATIVE (NEGATIVE); LEUKOCYTE ESTERASE URINE 3+ (NEGATIVE); NITRITE URINE NEGATIVE (NEGATIVE); OCCULT BLOOD URINE 2+ (NEGATIVE); PROTEIN URINE 2+ (NEGATIVE); SPECIFIC GRAVITY URINE 1.011 (1.005-1.030)
[2022-05-01] MEDS ORDERED: NOREPINEPHRINE 8MG/250ML PMX 250 ML IV ONE (16:23)
[2022-05-01] MEDS ORDERED: ONDANSETRON HCL 4MG/2ML INJ IV PRN (16:30)
[2022-05-01] MEDS: ENOXAPARIN 40MG/0.4ML SYR SUBCUT SCH (17:29)
[2022-05-01] MEDS: SODIUM CHLORIDE 0.9% 1,000 ML IV SCH (17:29)
[2022-05-01] MEDS ORDERED: DEXTROSE 50% WATER 50ML SYRINGE IV PRN (17:30)
[2022-05-01] MEDS: BLOOD SUGAR DIAGNOSTIC STRIP TEST SCH ×2 (17:50→21:24)
[2022-05-01] MEDS: INSULIN LISPRO 100 UNITS/ML SUBCUT SCH ×2 (18:20→21:00)
[2022-05-01] MEDS: VANCOMYCIN 750MG PREMIX 150 ML IV SCH (18:26)
[2022-05-01] MEDS: NOREPINEPHRINE 8 MG in DEXT 5% WATER 242 ML IV PRN (20:21)
[2022-05-02] VITALS (88 sets, daily range): BP systolic 76–132; BP diastolic 39–93
[2022-05-02] MEDS: SODIUM CHLORIDE 0.9% 1,000 ML IV SCH ×3 (02:30→22:02)
[2022-05-02 05:47] LABS: HEMATOCRIT. 24.7 % (42.0-52.0); HEMOGLOBIN. 8.2 g/dL (14.0-18.0); MEAN CORPUSCULAR HEMOGLOBIN 27.8 pg (28.0-32.0); MEAN PLATELET VOLUME 9.6 fl (7.4-10.4); PLATELET 184 x1000/uL (130-400); RED BLOOD CELL COUNT 2.95 mill/uL (4.7-6.1)
[2022-05-02 06:35] LABS: CHLORIDE 109 mEq/L (98-107)
[2022-05-02] MEDS ORDERED: POTASSIUM CHLORIDE INJ 40 MEQ in DEXT 5% WATER 250 ML IV ONE (07:45)
[2022-05-02] MEDS: INSULIN LISPRO 100 UNITS/ML SUBCUT SCH ×4 (08:19→20:42)
[2022-05-02] MEDS: BLOOD SUGAR DIAGNOSTIC STRIP TEST SCH ×4 (08:19→20:41)
[2022-05-02] MEDS: KCL 20MEQ/100ML X 2 FOR TOTAL KCL 40MEQ/200ML IV SCH ×2 (08:25→11:56)
[2022-05-02 08:51] LABS: PLATELET ESTIMATE NORMAL
[2022-05-02] MEDS ORDERED: CEFTRIAXONE 1,000 MG in DEXTROSE 5% WATER 50 ML IV SCH (09:00)
[2022-05-02] MEDS ORDERED: IPRATROPIUM/ALBUTEROL 0.5-3(2.5)MG/3ML NEB HHN PRN (10:00)
[2022-05-02] MEDS: NOREPINEPHRINE 8 MG in DEXT 5% WATER 242 ML IV PRN (12:08)
[2022-05-02] MEDS: VANCOMYCIN 750MG PREMIX 150 ML IV SCH (15:06)
[2022-05-02] MEDS: MEROPENEM 1,000 MG in SODIUM CHLORIDE 0.9% 100 ML IV SCH ×2 (16:25→22:02)
[2022-05-02] MEDS: ENOXAPARIN 40MG/0.4ML SYR SUBCUT SCH (18:11)
[2022-05-03] VITALS (71 sets, daily range): BP systolic 94–138; BP diastolic 52–84
[2022-05-03] MEDS: MEROPENEM 1,000 MG in SODIUM CHLORIDE 0.9% 100 ML IV SCH (05:45)
[2022-05-03] MEDS: VANCOMYCIN 750MG PREMIX 150 ML IV SCH (05:45)
[2022-05-03 05:59] LABS: HEMATOCRIT. 23.6 % (42.0-52.0); HEMOGLOBIN. 7.8 g/dL (14.0-18.0); MEAN CORPUSCULAR HEMOGLOBIN 28.3 pg (28.0-32.0); MEAN CORPUSCULAR VOLUME 85.4 fL (80.0-94.0); PLATELET 148 x1000/uL (130-400); RED BLOOD CELL COUNT 2.77 mill/uL (4.7-6.1)
[2022-05-03 06:09] LABS: CHLORIDE 111 mEq/L (98-107)
[2022-05-03 06:19] LABS: PHOSPHORUS 2.9 mg/dL (2.5-4.9)
[2022-05-03] MEDS: INSULIN LISPRO 100 UNITS/ML SUBCUT SCH ×4 (07:58→20:39)
[2022-05-03] MEDS: BLOOD SUGAR DIAGNOSTIC STRIP TEST SCH ×4 (07:58→20:39)
[2022-05-03 08:01] LABS: PLATELET ESTIMATE NORMAL
[2022-05-03] MEDS: SODIUM CHLORIDE 0.9% 1,000 ML IV SCH ×2 (08:25→17:35)
[2022-05-03] MEDS ORDERED: POTASSIUM CHLORIDE 20MEQ/PACKET PO NR (11:00)
[2022-05-03] MEDS ORDERED: GADOTERATE MEGLUMINE 5 MMOL/10 ML VIAL IV ONE (12:07)
[2022-05-03] MEDS ORDERED: NON FORMULARY PATIENT HOME MED XX SCH (15:00)
[2022-05-03] MEDS ORDERED: ONDANSETRON HCL 4MG/2ML INJ IV PRN (16:30)
[2022-05-03] MEDS: ENOXAPARIN 40MG/0.4ML SYR SUBCUT SCH (16:34)
[2022-05-03] MEDS: CEFTRIAXONE 2 G in DEXTROSE 5% WATER 50 ML IV SCH (16:44)
[2022-05-03] MEDS: LACTULOSE 20G/30ML UDC PO PRN (16:44)
[2022-05-03 17:15] LABS: TOTAL IRON BINDING CAPACITY 132 ug/dL (250-450)
[2022-05-03] MEDS: NYSTATIN 100,000 UNITS/ML 5ML UDC SSW SCH (18:17)
[2022-05-03 18:50] LABS: FERRITIN 530 ng/mL (22-322)
[2022-05-03 19:01] LABS: HEPATITIS B SURFACE ANTIGEN NEGATIVE
[2022-05-03] MEDS: PANTOPRAZOLE SODIUM 40 MG/VIAL IV SCH (20:39)
[2022-05-03 21:50] LABS: VITAMIN B12 SERUM 907 pg/mL (211-911)
[2022-05-04] VITALS (43 sets, daily range): BP systolic 116–145; BP diastolic 68–91
[2022-05-04] MEDS: VANCOMYCIN 1G PREMIX 200 ML IV SCH ×2 (00:19→17:01)
[2022-05-04] MEDS: SODIUM CHLORIDE 0.9% 1,000 ML IV SCH ×3 (02:40→22:05)
[2022-05-04] MEDS: INSULIN LISPRO 100 UNITS/ML SUBCUT SCH ×4 (06:03→21:00)
[2022-05-04] MEDS: BLOOD SUGAR DIAGNOSTIC STRIP TEST SCH ×4 (06:03→21:00)
[2022-05-04 06:41] LABS: HEMATOCRIT. 25.9 % (42.0-52.0); HEMOGLOBIN. 8.4 g/dL (14.0-18.0); MEAN CORPUSCULAR HEMOGLOBIN 27.7 pg (28.0-32.0); MEAN CORPUSCULAR VOLUME 85.2 fL (80.0-94.0); MEAN PLATELET VOLUME 10.3 fl (7.4-10.4); PLATELET 155 x1000/uL (130-400); RED BLOOD CELL COUNT 3.04 mill/uL (4.7-6.1); RED CELL DISTRIBUTION WIDTH 14.5 % (11.6-14.6)
[2022-05-04 06:52] LABS: INR 1.1; PROTHROMBIN TIME 11.4 sec (9.6-11.0)
[2022-05-04 07:15] LABS: CHLORIDE 113 mEq/L (98-107)
[2022-05-04 08:07] LABS: A/G RATIO 0.5 (0.7-1.7); ALBUMIN 1.6 g/dL (2.9-4.4); ALPHA-1-GLOBULIN 0.4 g/dL (0.0-0.4); ALPHA-2-GLOBULIN 0.7 g/dL (0.4-1.0); BETA GLOBULIN 0.9 g/dL (0.7-1.3); GAMMA GLOBULINS 1.1 g/dL (0.4-1.8); GLOBULIN TOTAL 3.1 g/dL (2.2-3.9); M-SPIKE Not Observed g/dL (Not Observed); TOTAL PROTEIN SERUM 4.7 g/dL (6.0-8.5)
[2022-05-04] MEDS: NYSTATIN 100,000 UNITS/ML 5ML UDC SSW SCH ×2 (08:25→17:01)
[2022-05-04] MEDS: PANTOPRAZOLE SODIUM 40 MG/VIAL IV SCH ×2 (08:25→21:13)
[2022-05-04] MEDS: FOLIC ACID/VITAMIN B COMP W-C TABLET PO SCH (13:52)
[2022-05-04 14:48] LABS: PLATELET ESTIMATE NORMAL
[2022-05-04] MEDS: CEFTRIAXONE 2 G in DEXTROSE 5% WATER 50 ML IV SCH (16:55)
[2022-05-04] MEDS: ENOXAPARIN 40MG/0.4ML SYR SUBCUT SCH (17:00)
[2022-05-04] MEDS: ACETAMINOPHEN 325MG TABLET PO PRN (21:13)
[2022-05-05] VITALS (34 sets, daily range): BP systolic 110–190; BP diastolic 55–96
[2022-05-05 05:22] LABS: HEMOGLOBIN. 8.4 g/dL (14.0-18.0); MEAN CORPUSCULAR HEMOGLOBIN 27.4 pg (28.0-32.0); MEAN CORPUSCULAR VOLUME 84.8 fL (80.0-94.0); PLATELET 146 x1000/uL (130-400); RED BLOOD CELL COUNT 3.06 mill/uL (4.7-6.1); RED CELL DISTRIBUTION WIDTH 14.3 % (11.6-14.6)
[2022-05-05 05:25] LABS: CHLORIDE 115 mEq/L (98-107)
[2022-05-05] MEDS: ACETAMINOPHEN 325MG TABLET PO PRN (06:06)
[2022-05-05] MEDS: BLOOD SUGAR DIAGNOSTIC STRIP TEST SCH ×4 (06:30→21:00)
[2022-05-05] MEDS: INSULIN LISPRO 100 UNITS/ML SUBCUT SCH ×4 (07:00→21:00)
[2022-05-05] MEDS: FOLIC ACID/VITAMIN B COMP W-C TABLET PO SCH (08:24)
[2022-05-05] MEDS: PANTOPRAZOLE SODIUM 40 MG/VIAL IV SCH ×2 (08:24→21:00)
[2022-05-05] MEDS: NYSTATIN 100,000 UNITS/ML 5ML UDC SSW SCH ×2 (08:24→16:49)
[2022-05-05] MEDS: SODIUM CHLORIDE 0.9% 1,000 ML IV SCH (09:40)
[2022-05-05] MEDS ORDERED: DEXT 5%/0.45% NACL 1000ML 1,000 ML IV SCH (10:45)
[2022-05-05] MEDS: VANCOMYCIN 1G PREMIX 200 ML IV SCH (11:20)
[2022-05-05] MEDS ORDERED: LIDOCAINE HCL/EPINEPHRINE 1%-EPI 1:100,000 20 ML VIAL ONE (12:08)
[2022-05-05] MEDS ORDERED: GENTAMICIN SULF 40MG/ML 2ML VIAL ONE (12:08)
[2022-05-05] MEDS ORDERED: THROMBIN (BOVINE) 5000 UNITS/VIAL TOP ONE (12:08)
[2022-05-05 12:49] LABS: PLATELET ESTIMATE NORMAL
[2022-05-05] MEDS ORDERED: ROCURONIUM BROMIDE 10MG/ML VIAL 5ML IV ONE (12:57)
[2022-05-05] MEDS ORDERED: FENTANYL CITRATE/PF 50MCG/ML 2ML VIAL ONE ×2 (13:05→15:00)
[2022-05-05] MEDS ORDERED: MIDAZOLAM HCL 2 MG/2 ML VIAL ONE (13:06)
[2022-05-05] MEDS ORDERED: GLYCOPYRROLATE 0.2 MG/ML 2ML VIAL ONE ×2 (14:30)
[2022-05-05] MEDS ORDERED: NEOSTIGMINE METHYLSULFATE 1MG/ML 10 ML VIAL ONE (14:30)
[2022-05-05] MEDS ORDERED: HYDRALAZINE 20MG/ML VIAL ONE (14:32)
[2022-05-05] MEDS ORDERED: MORPHINE SULFATE 4 MG/ML CPJ (NOT FOR IM USE) IV PRN (14:45)
[2022-05-05] MEDS ORDERED: HYDROCODONE/ACETAMINOPHEN 5/325MG TABLET PO PRN (14:45)
[2022-05-05] MEDS ORDERED: NICARDIPINE 100 MG in SODIUM CHLORIDE 0.9% 60 ML IV PRN (14:45)
[2022-05-05] MEDS: DEXT 5%/LACTATED RINGERS 1,000 ML IV SCH ×2 (15:21→22:39)
[2022-05-05] MEDS ORDERED: HYDROMORPHONE PCA 10MG/50ML IV PRN (16:00)
[2022-05-05] MEDS ORDERED: NALOXONE INJ IV PRN (16:00)
[2022-05-05] MEDS ORDERED: ONDANSETRON INJ IV PRN (16:00)
[2022-05-05] MEDS ORDERED: MORPHINE SULFATE 4 MG/ML CPJ (NOT FOR IM USE) IV NR (16:45)
[2022-05-05] MEDS ORDERED: HYDROMORPHONE HCL/PF 2MG/ML CPJ IV PRN (16:45)
[2022-05-05] MEDS: CEFTRIAXONE 2 G in DEXTROSE 5% WATER 50 ML IV SCH (16:49)
[2022-05-05] MEDS: ENOXAPARIN 40MG/0.4ML SYR SUBCUT SCH (16:52)
[2022-05-05] MEDS ORDERED: MORPHINE SULFATE 10 MG/ML CPJ IM PRN (18:00)
[2022-05-05] MEDS: TRAMADOL 50MG TABLET PO PRN (22:45)
[2022-05-06] VITALS (24 sets, daily range): BP systolic 107–278; BP diastolic 38–278
[2022-05-06] MEDS: CLONIDINE 0.1MG TABLET PO PRN ×2 (00:01→11:33)
[2022-05-06 03:10] LABS: HEMATOCRIT. 26.2 % (42.0-52.0); MEAN CORPUSCULAR VOLUME 83.9 fL (80.0-94.0); MEAN PLATELET VOLUME 10.6 fl (7.4-10.4); PLATELET 169 x1000/uL (130-400); RED BLOOD CELL COUNT 3.12 mill/uL (4.7-6.1)
[2022-05-06 03:20] LABS: CHLORIDE 109 mEq/L (98-107)
[2022-05-06 05:32] LABS: PLATELET ESTIMATE NORMAL
[2022-05-06] MEDS: INSULIN LISPRO 100 UNITS/ML SUBCUT SCH ×4 (06:34→21:00)
[2022-05-06] MEDS: BLOOD SUGAR DIAGNOSTIC STRIP TEST SCH ×4 (06:34→21:48)
[2022-05-06] MEDS: TRAMADOL 50MG TABLET PO PRN (06:35)
[2022-05-06] MEDS ORDERED: LIDOCAINE HCL 1% 30ML VIAL (10MG/ML) ONE (07:57)
[2022-05-06] MEDS: PANTOPRAZOLE SODIUM 40 MG/VIAL IV SCH ×2 (08:44→21:50)
[2022-05-06] MEDS: NYSTATIN 100,000 UNITS/ML 5ML UDC SSW SCH ×2 (08:45→16:32)
[2022-05-06] MEDS: FOLIC ACID/VITAMIN B COMP W-C TABLET PO SCH (08:45)
[2022-05-06] MEDS: DOCUSATE SODIUM SUGAR FREE 100MG/10ML UDC PO SCH (11:33)
[2022-05-06] MEDS ORDERED: VANCOMYCIN 750MG PREMIX 150 ML IV SCH (12:00)
[2022-05-06] MEDS: CEFTRIAXONE 2 G in DEXTROSE 5% WATER 50 ML IV SCH (16:09)
[2022-05-06] MEDS: ENOXAPARIN 40MG/0.4ML SYR SUBCUT SCH (16:09)
[2022-05-06] MEDS: SENNOSIDES 8.6MG TABLET PO SCH (21:48)
[2022-05-07] VITALS: BP 122/71
[2022-05-07 04:00] VITALS: BP 144/70
[2022-05-07] MEDS: BLOOD SUGAR DIAGNOSTIC STRIP TEST SCH ×4 (06:26→20:54)
[2022-05-07 06:49] LABS: BASOPHILS % 0.2 % (0.0-2.0); EOSINOPHILS % 0.2 % (0.0-5.0); HEMATOCRIT. 24.1 % (42.0-52.0); HEMOGLOBIN. 8.1 g/dL (14.0-18.0); LYMPHOCYTES % 7.4 % (20.0-50.0); MEAN CORPUSCULAR HEMOGLOBIN 28.2 pg (28.0-32.0); MEAN CORPUSCULAR VOLUME 84.1 fL (80.0-94.0); MEAN PLATELET VOLUME 10.1 fl (7.4-10.4); MONOCYTES % 4.9 % (2.0-8.0); NEUTROPHILS % 87.3 % (40.0-76.0); PLATELET 172 x1000/uL (130-400); RED BLOOD CELL COUNT 2.87 mill/uL (4.7-6.1); RED CELL DISTRIBUTION WIDTH 14.6 % (11.6-14.6)
[2022-05-07 08:00] VITALS: BP 150/71
[2022-05-07] MEDS: INSULIN LISPRO 100 UNITS/ML SUBCUT SCH ×4 (08:10→20:54)
[2022-05-07] MEDS: PANTOPRAZOLE SODIUM 40 MG/VIAL IV SCH ×2 (08:39→20:53)
[2022-05-07] MEDS: FOLIC ACID/VITAMIN B COMP W-C TABLET PO SCH (08:39)
[2022-05-07] MEDS: DOCUSATE SODIUM SUGAR FREE 100MG/10ML UDC PO SCH (08:39)
[2022-05-07] MEDS: NYSTATIN 100,000 UNITS/ML 5ML UDC SSW SCH ×2 (08:47→16:06)
[2022-05-07 09:29] LABS: CHLORIDE 107 mEq/L (98-107)
[2022-05-07 12:00] VITALS: BP 157/89
[2022-05-07 16:00] VITALS: BP 148/70
[2022-05-07] MEDS: CEFTRIAXONE 2 G in DEXTROSE 5% WATER 50 ML IV SCH (16:06)
[2022-05-07] MEDS: ENOXAPARIN 40MG/0.4ML SYR SUBCUT SCH (16:07)
[2022-05-07 20:00] VITALS: BP 162/78
[2022-05-07] MEDS: SENNOSIDES 8.6MG TABLET PO SCH (20:53)
[2022-05-07] MEDS: CLONIDINE 0.1MG TABLET PO PRN (20:54)
[2022-05-08] VITALS (9 sets, daily range): BP systolic 124–190; BP diastolic 60–80
[2022-05-08] MEDS: MORPHINE SULFATE 4 MG/ML CPJ (NOT FOR IM USE) IV PRN ×2 (00:35→04:28)
[2022-05-08] MEDS: BLOOD SUGAR DIAGNOSTIC STRIP TEST SCH ×4 (06:40→20:49)
[2022-05-08 07:23] LABS: BASOPHILS % 0.2 % (0.0-2.0); EOSINOPHILS % 0.6 % (0.0-5.0); LYMPHOCYTES % 9.8 % (20.0-50.0); MEAN CORPUSCULAR HEMOGLOBIN 28.6 pg (28.0-32.0); MEAN CORPUSCULAR VOLUME 84.8 fL (80.0-94.0); MEAN PLATELET VOLUME 10.2 fl (7.4-10.4); MONOCYTES % 4.5 % (2.0-8.0); NEUTROPHILS % 84.9 % (40.0-76.0); PLATELET 149 x1000/uL (130-400); RED BLOOD CELL COUNT 2.41 mill/uL (4.7-6.1); RED CELL DISTRIBUTION WIDTH 14.4 % (11.6-14.6)
[2022-05-08 07:37] LABS: CHLORIDE 107 mEq/L (98-107)
[2022-05-08 07:39] LABS: HEMATOCRIT. 20.4 % (42.0-52.0); HEMOGLOBIN. 6.9 g/dL (14.0-18.0)
[2022-05-08] MEDS: INSULIN LISPRO 100 UNITS/ML SUBCUT SCH ×4 (08:10→20:51)
[2022-05-08] MEDS ORDERED: POTASSIUM CHLORIDE 20MEQ TABLET SR PO NR (09:00)
[2022-05-08] MEDS: MULTIVITAMINS,THER W-MINERALS TABLET PO SCH (09:13)
[2022-05-08] MEDS: DOCUSATE SODIUM SUGAR FREE 100MG/10ML UDC PO SCH (09:13)
[2022-05-08] MEDS: PANTOPRAZOLE SODIUM 40 MG/VIAL IV SCH ×2 (09:13→20:49)
[2022-05-08] MEDS: NYSTATIN 100,000 UNITS/ML 5ML UDC SSW SCH ×2 (09:14→15:16)
[2022-05-08] MEDS ORDERED: [UNRECOGNIZED DRUG - REMARK] XX SCH (13:00)
[2022-05-08 13:12] LABS: TOTAL IRON BINDING CAPACITY 141 ug/dL (250-450)
[2022-05-08] MEDS: CEFTRIAXONE 2 G in DEXTROSE 5% WATER 50 ML IV SCH (15:17)
[2022-05-08] MEDS: ENOXAPARIN 40MG/0.4ML SYR SUBCUT SCH (15:17)
[2022-05-08] MEDS: SENNOSIDES 8.6MG TABLET PO SCH (20:49)
[2022-05-09] VITALS: BP 128/65
[2022-05-09 00:31] LABS: HEMATOCRIT 24.3 % (42.0-52.0); HEMOGLOBIN 8.1 g/dL (14.0-18.0)
[2022-05-09 04:00] VITALS: BP 144/72
[2022-05-09] MEDS: LACTULOSE 20G/30ML UDC PO PRN (05:53)
[2022-05-09 07:26] LABS: HEMATOCRIT. 23.7 % (42.0-52.0); HEMOGLOBIN. 7.9 g/dL (14.0-18.0); MEAN CORPUSCULAR HEMOGLOBIN 28.4 pg (28.0-32.0); MEAN CORPUSCULAR VOLUME 85.4 fL (80.0-94.0); MEAN PLATELET VOLUME 10.1 fl (7.4-10.4); PLATELET 181 x1000/uL (130-400); RED BLOOD CELL COUNT 2.78 mill/uL (4.7-6.1); RED CELL DISTRIBUTION WIDTH 14.6 % (11.6-14.6)
[2022-05-09 07:29] LABS: CHLORIDE 106 mEq/L (98-107)
[2022-05-09 08:00] VITALS: BP 137/62
[2022-05-09] MEDS: INSULIN LISPRO 100 UNITS/ML SUBCUT SCH ×4 (08:10→20:47)
[2022-05-09] MEDS: DOCUSATE SODIUM SUGAR FREE 100MG/10ML UDC PO SCH (08:24)
[2022-05-09] MEDS: NYSTATIN 100,000 UNITS/ML 5ML UDC SSW SCH ×2 (08:25→16:49)
[2022-05-09] MEDS: MULTIVITAMINS,THER W-MINERALS TABLET PO SCH (08:25)
[2022-05-09] MEDS: PANTOPRAZOLE SODIUM 40 MG/VIAL IV SCH ×2 (08:25→20:47)
[2022-05-09] MEDS: BLOOD SUGAR DIAGNOSTIC STRIP TEST SCH ×4 (08:26→20:47)
[2022-05-09] MEDS ORDERED: POTASSIUM CHLORIDE 20MEQ/PACKET PO SCH (09:30)
[2022-05-09 10:53] LABS: PLATELET ESTIMATE NORMAL
[2022-05-09 12:00] VITALS: BP 148/61
[2022-05-09 16:00] VITALS: BP 143/71
[2022-05-09] MEDS: ENOXAPARIN 40MG/0.4ML SYR SUBCUT SCH (16:49)
[2022-05-09] MEDS: CEFTRIAXONE 2 G in DEXTROSE 5% WATER 50 ML IV SCH (16:50)
[2022-05-09 20:00] VITALS: BP 137/76
[2022-05-09] MEDS: SENNOSIDES 8.6MG TABLET PO SCH (20:47)
[2022-05-10] VITALS: BP 158/76
[2022-05-10 04:00] VITALS: BP 121/61
[2022-05-10] MEDS: BLOOD SUGAR DIAGNOSTIC STRIP TEST SCH ×4 (05:52→20:21)
[2022-05-10] MEDS: INSULIN LISPRO 100 UNITS/ML SUBCUT SCH ×4 (05:52→20:21)
[2022-05-10 06:32] LABS: BASOPHILS % 0.2 % (0.0-2.0); EOSINOPHILS % 0.2 % (0.0-5.0); HEMATOCRIT. 22.1 % (42.0-52.0); HEMOGLOBIN. 7.4 g/dL (14.0-18.0); LYMPHOCYTES % 7.2 % (20.0-50.0); MEAN CORPUSCULAR HEMOGLOBIN 28.2 pg (28.0-32.0); MEAN CORPUSCULAR VOLUME 84.6 fL (80.0-94.0); MEAN PLATELET VOLUME 10.7 fl (7.4-10.4); MONOCYTES % 3.1 % (2.0-8.0); NEUTROPHILS % 89.3 % (40.0-76.0); PLATELET 181 x1000/uL (130-400); RED BLOOD CELL COUNT 2.62 mill/uL (4.7-6.1); RED CELL DISTRIBUTION WIDTH 14.4 % (11.6-14.6)
[2022-05-10 08:00] VITALS: BP 146/68
[2022-05-10 08:05] LABS: CHLORIDE 107 mEq/L (98-107)
[2022-05-10] MEDS: PANTOPRAZOLE SODIUM 40 MG/VIAL IV SCH ×2 (09:52→20:21)
[2022-05-10] MEDS: DOCUSATE SODIUM SUGAR FREE 100MG/10ML UDC PO SCH (09:52)
[2022-05-10] MEDS: MULTIVITAMINS,THER W-MINERALS TABLET PO SCH ×2 (09:53→10:00)
[2022-05-10] MEDS ORDERED: POTASSIUM CHLORIDE 20MEQ TABLET SR PO NR ×2 (10:00→12:15)
[2022-05-10 12:00] VITALS: BP 119/66
[2022-05-10] MEDS ORDERED: SODIUM PHOS,M-BASIC-D-BASIC 20 MM in DEXT 5% WATER 243.3333 ML IV NR (12:30)
[2022-05-10] MEDS ORDERED: MAGNESIUM 2 G PREMIX 50 ML IV NR (13:30)
[2022-05-10] MEDS: FOLIC ACID/VITAMIN B COMP W-C TABLET PO SCH (14:34)
[2022-05-10] MEDS ORDERED: BISACODYL 10MG SUPP PR NR (15:45)
[2022-05-10 16:00] VITALS: BP 128/79
[2022-05-10] MEDS: CEFTRIAXONE 2 G in DEXTROSE 5% WATER 50 ML IV SCH (17:08)
[2022-05-10] MEDS: ENOXAPARIN 40MG/0.4ML SYR SUBCUT SCH (17:12)
[2022-05-10 20:00] VITALS: BP 99/50
[2022-05-10] MEDS: METOPROLOL TARTRATE 25MG TABLET PO SCH (20:21)
[2022-05-10] MEDS: SENNOSIDES 8.6MG TABLET PO SCH (20:21)
[2022-05-11] VITALS: BP 128/68
[2022-05-11 04:00] VITALS: BP 113/68
[2022-05-11 06:32] LABS: HEMATOCRIT. 21.9 % (42.0-52.0); HEMOGLOBIN. 7.3 g/dL (14.0-18.0); MEAN CORPUSCULAR HEMOGLOBIN 28.3 pg (28.0-32.0); MEAN PLATELET VOLUME 10.2 fl (7.4-10.4); PLATELET 176 x1000/uL (130-400); RED BLOOD CELL COUNT 2.58 mill/uL (4.7-6.1); RED CELL DISTRIBUTION WIDTH 14.8 % (11.6-14.6)
[2022-05-11 06:33] LABS: INR 1.2; PROTHROMBIN TIME 12.3 sec (9.6-11.0)
[2022-05-11] MEDS: BLOOD SUGAR DIAGNOSTIC STRIP TEST SCH ×4 (07:40→20:57)
[2022-05-11 08:00] VITALS: BP 146/76
[2022-05-11] MEDS: INSULIN LISPRO 100 UNITS/ML SUBCUT SCH ×4 (08:10→20:57)
[2022-05-11] MEDS: DOCUSATE SODIUM SUGAR FREE 100MG/10ML UDC PO SCH (09:03)
[2022-05-11] MEDS: METOPROLOL TARTRATE 25MG TABLET PO SCH ×2 (09:04→20:58)
[2022-05-11] MEDS: PANTOPRAZOLE SODIUM 40 MG/VIAL IV SCH ×2 (09:04→20:58)
[2022-05-11] MEDS: FOLIC ACID/VITAMIN B COMP W-C TABLET PO SCH (09:04)
[2022-05-11 09:53] LABS: PLATELET ESTIMATE NORMAL
[2022-05-11 10:32] LABS: CHLORIDE 105 mEq/L (98-107)
[2022-05-11 10:47] LABS: PHOSPHORUS 2.3 mg/dL (2.5-4.9)
[2022-05-11 12:00] VITALS: BP 146/66
[2022-05-11 16:00] VITALS: BP 159/81
[2022-05-11] MEDS: ENOXAPARIN 40MG/0.4ML SYR SUBCUT SCH (17:45)
[2022-05-11] MEDS: CEFTRIAXONE 2 G in DEXTROSE 5% WATER 50 ML IV SCH (17:45)
[2022-05-11] MEDS: FERROUS SULFATE 325MG TABLET PO SCH (17:45)
[2022-05-11 20:00] VITALS: BP 147/75
[2022-05-11] MEDS: SENNOSIDES 8.6MG TABLET PO SCH (20:58)
[2022-05-12] VITALS: BP 143/71
[2022-05-12 04:00] VITALS: BP 139/66
[2022-05-12] MEDS: BLOOD SUGAR DIAGNOSTIC STRIP TEST SCH ×2 (05:58→12:42)
[2022-05-12] MEDS: INSULIN LISPRO 100 UNITS/ML SUBCUT SCH ×2 (05:59→12:43)
[2022-05-12 08:18] VITALS: BP 122/56
[2022-05-12] MEDS: METOPROLOL TARTRATE 25MG TABLET PO SCH (08:55)
[2022-05-12] MEDS: MULTIVITAMINS,THER W-MINERALS TABLET PO SCH (08:55)
[2022-05-12] MEDS: FOLIC ACID/VITAMIN B COMP W-C TABLET PO SCH (08:55)
[2022-05-12] MEDS: DOCUSATE SODIUM SUGAR FREE 100MG/10ML UDC PO SCH (08:55)
[2022-05-12] MEDS: FERROUS SULFATE 325MG TABLET PO SCH ×2 (08:55→13:38)
[2022-05-12] MEDS: PANTOPRAZOLE SODIUM 40 MG/VIAL IV SCH (08:55)
[2022-05-12 12:25] VITALS: BP 121/60
[2022-05-12 14:14] VITALS: BP 122/65
== END 2022-05-12 15:30 | disposition home or self-care (01) | DRG 853 ==
LOC: ER 09:57 → EDBEDREQSVC 12:09 → EDBEDREQ 12:09 → CVICU 12:52 → EDBEDREQSVC 13:00 → ENRESERV 15:49 → SUPCPDRO 16:16 → MICUNO 05-03 23:39 → 7WST 05-06 15:00
PROVIDERS: ADMIT Internal Medicine Nephrology; ATTEND Internal Medicine Nephrology
PROC: B54BZZA Ultrasonography of Right Lower Extremity Veins, Guidance (ICD-10-PCS; 2022-05-01)
PROC: 06HY33Z Insertion of Infusion Device into Lower Vein, Percutaneous Approach (ICD-10-PCS; 2022-05-01)
PROC: 0SG0071 Fusion of Lumbar Vertebral Joint with Autologous Tissue Substitute, Posterior Approach, Posterior Column, Open Approach (ICD-10-PCS; principal; 2022-05-05)
PROC: 01NB0ZZ Release Lumbar Nerve, Open Approach (ICD-10-PCS; 2022-05-05)
PROC: 0SB20ZZ Excision of Lumbar Vertebral Disc, Open Approach (ICD-10-PCS; 2022-05-05)
PROC: 0S900ZZ Drainage of Lumbar Vertebral Joint, Open Approach (ICD-10-PCS; 2022-05-05)
PROC: 30233N1 Transfusion of Nonautologous Red Blood Cells into Peripheral Vein, Percutaneous Approach (ICD-10-PCS; 2022-05-05)
PROC: 0QB00ZX Excision of Lumbar Vertebra, Open Approach, Diagnostic (ICD-10-PCS; 2022-05-05)
PROC: 02HV33Z Insertion of Infusion Device into Superior Vena Cava, Percutaneous Approach (ICD-10-PCS; 2022-05-06)
PROC: B548ZZA Ultrasonography of Superior Vena Cava, Guidance (ICD-10-PCS; 2022-05-06)
DX: A41.51 Sepsis due to Escherichia coli [E. coli] (principal); E43 Unspecified severe protein-calorie malnutrition; G06.2 Extradural and subdural abscess, unspecified; N17.0 Acute kidney failure with tubular necrosis; R65.21 Severe sepsis with septic shock; M46.26 Osteomyelitis of vertebra, lumbar region; G95.20 Unspecified cord compression; E87.20 Acidosis, unspecified; E87.1 Hypo-osmolality and hyponatremia; G82.20 Paraplegia, unspecified; I24.8 Other forms of acute ischemic heart disease; J98.11 Atelectasis; N13.6 Pyonephrosis; I47.20 Ventricular tachycardia, unspecified; N40.0 Benign prostatic hyperplasia without lower urinary tract symptoms; L89.150 Pressure ulcer of sacral region, unstageable; E83.52 Hypercalcemia; M46.46 Discitis, unspecified, lumbar region; J44.9 Chronic obstructive pulmonary disease, unspecified; K59.00 Constipation, unspecified; E53.8 Deficiency of other specified B group vitamins; E78.5 Hyperlipidemia, unspecified; R74.01 Elevation of levels of liver transaminase levels; D50.9 Iron deficiency anemia, unspecified; N18.9 Chronic kidney disease, unspecified; D63.1 Anemia in chronic kidney disease; R13.10 Dysphagia, unspecified; E87.6 Hypokalemia; I12.9 Hypertensive chronic kidney disease with stage 1 through stage 4 chronic kidney disease, or unspecified chronic kidney disease; Z96.649 Presence of unspecified artificial hip joint; Z68.22 Body mass index [BMI] 22.0-22.9, adult; N32.89 Other specified disorders of bladder; Z20.822 Contact with and (suspected) exposure to COVID-19
CPT/HCPCS: 36415; 36573; 71045; 72100; 72158; 74176; 76000; 80048; 80053; 80076; 80202; 81003; 82270; 82607; 82728; 82746; 82962; 83036; 83540; 83550; 83605; 83735; 83970; 84100; 84145; 84155; 84165; 84484; 85014; 85018; 85025; 85044; 85651; 86705; 86709; 86803; 86850; 86900; 86920; 87070; 87075; 87077; 87186; 87340; 87426; 88311; 92610; 93005; 93306; 95863; 95925; 95926; 95928; 95929; 97110; 97116; 97162; 97166; 97530; 97535; 99291; A6261; A9577; C1713; C1725; C9113; J0360; J0696; J1170; J1580; J1650; J1815; J2185; J2250; J2270; J2543; J2710; J3010; J3370; J3475; J3480; J3490; J7030; J7050; J7060; J7121; P9016; U0003; U0005; C1762